=== PATIENT | female | born 1975 | race Two or more races ===

== ENCOUNTER 2019-03-20 15:45 | Inpatient (IN) | payer BC ==
[~2019-03-20] VITALS: Ht 162.6 cm; Wt 137.1 kg
[2019-03-20] MEDS: SODIUM CHLORIDE 0.9% 1,000 ML IV SCH (03:19)
[2019-03-20] MEDS ORDERED: cefTRIAXone SOD 1,000 MG VL IM ONE (16:30)
[2019-03-20] MEDS ORDERED: LIDOCAINE 2% (LOCAL ANESTH.) PF 5ml SDV ONE (16:35)
[2019-03-20 16:42] LABS: Basophils # (auto) 0.2 uL; Basophils % (auto) 1.1 % (0.0-2.0); Eosinophils # (auto) 0.1 uL; Eosinophils % (auto) 0.3 % (0.0-7.0); Hematocrit 41.9 % (36.0-46.0); Hemoglobin 13.7 g/dL (12.2-16.2); Lymphocytes # (auto) 2.7 uL; Mean Corpuscular Hemoglobin 28.4 pg (28.0-32.0); Mean Corpuscular Hgb Conc. 32.7 g/dL (32.0-36.0); Mean Corpuscular Volume 86.7 fL (80.0-100.0); Monocytes # (auto) 0.7 uL; Monocytes % (auto) 3.4 % (0.0-12.0); Neutrophils # (auto) 15.8 uL; Neutrophils % (auto) 81.2 % (37.0-80.0); Nucleated Red Blood Cells % 0.1 %; Platelet Count (auto) 235 10^3/uL (140-450); Red Blood Cells 4.84 10^6/uL (4.0-5.20); Red Cell Distribution Width 13.9 % (11.8-14.3); White Blood Cell 19.5 10^3/uL (4.4-10.8)
[2019-03-20] MEDS ORDERED: LIDOCAINE 2% (LOCAL ANESTH.) PF 5ml SDV IJ ONE (16:45)
[2019-03-20] MEDS ORDERED: SODIUM CHLORIDE 0.9% 1,000 ML IV ONE ×2 (16:49)
[2019-03-20 16:54] LABS: Albumin 3.3 g/dL (3.4-5.0); Calcium 8.4 mg/dL (8.5-10.1); Potassium 4.2 mmol/L (3.5-5.1)
[2019-03-20 17:13] LABS: BUN/Creatinine Ratio 16.3; Bilirubin, Total 0.4 mg/dL (0.2-1.0)
[2019-03-20 17:32] LABS: Urine Bacteria NONE SEEN /hpf (None Seen); Urine Blood Negative /uL (Negative); Urine Specific Gravity 1.034 (1.001-1.035); Urine WBC 2 /hpf (0 - 5)
[2019-03-20 17:43] LABS: Lactic Acid w/Reflex 2.7 mmol/L (0.4-2.0)
[2019-03-20] MEDS ORDERED: MORPHINE SULF INJ 2 MG/ML SYRINGE 1ML IV PRN (19:45)
[2019-03-20] MEDS ORDERED: VANCOMYCIN PER PHARMACY 0 MG IV SCH (19:45)
[2019-03-20] MEDS ORDERED: DEXTROSE (50%) 50ML SYRG IV PRN (19:45)
[2019-03-20] MEDS ORDERED: NITROGLYCERIN 0.4 MG SL TAB SL PRN (19:45)
[2019-03-20] MEDS ORDERED: LEVOFLOXACIN 750MG 150 ML IV SCH (20:00)
--- NOTE | 2019-03-20 20:05 | NUR ---
RT NOTE: PT ASSESSED FOR PRN MED NEB TX, PT STATED SHE TAKES TX AT HOME FOR ASTHMA NEEDED WHEN SICK. PT DENIES SOB AT THIS TIME. PT ON ROOM AIR SPO2 99%, HR 91, RR 18. BS CLEAR. PT NOTIFIED OF MED NEB TX AND TO HAVE RT PAGED IF SOB OCCURS.
[2019-03-20] MEDS ORDERED: IPRATROPIUM BROM 0.5 MG/2.5ML INH SOL ONE (20:11)
[2019-03-20] MEDS ORDERED: ALBUTEROL SULF 2.5 MG/0.5ML(0.5%) NEB SOLN ONE (20:11)
[2019-03-20 20:39] VITALS: BP 172/97
[2019-03-20] MEDS: MORPHINE SULF INJ 2 MG/ML SYRINGE 1ML IV PRN (20:57)
[2019-03-20] MEDS: ONDANSETRON HCL 4 MG/2 ML VIAL IV PRN (20:57)
[2019-03-20] MEDS ORDERED: VANCOMYCIN 1,500 MG in D5W 5% 250 ML IV SCH (21:00)
--- NOTE | 2019-03-20 21:35 | NUR ---
Telemetry admit from ER KARIN VELA admitted to Telemetry unit after SBAR received. Patient oriented to Kiley Islas, primary RN, unit, room, bed, and unit policies regarding patient care and visiting hours. Patient now on continuous telemetry monitoring, tele box # [id number] and telemetry reading on arrival to unit is sinus rhythm. Patient weighed by bedscale and encouraged to call if they need something. All questions and concerns addressed, patient verbalized understanding.
[2019-03-20 21:45] VITALS: BP 158/98
[2019-03-20] MEDS ORDERED: IPRATROPIUM BROM 0.5 MG/2.5ML INH SOL NEB PRN (22:00)
[2019-03-20] MEDS ORDERED: ALBUTEROL SULF 2.5 MG/0.5ML(0.5%) NEB SOLN NEB PRN (22:00)
[2019-03-20] MEDS: DOCUSATE SOD 100 MG CAP PO SCH (22:00)
[2019-03-20 22:01] VITALS: BP 158/98
[2019-03-20] MEDS: ACCU-CHEK COMFORT CURVE STRIP VI SCH (22:15)
[2019-03-20] MEDS: InsuLIN REG 1unit/0.01ml Soln (100units/ml) SC SCH (22:16)
[2019-03-20] MEDS: HYDROcodone-ACET 5/325MG TAB PO PRN (22:28)
[2019-03-21] MEDS: VANCOMYCIN 1,500 MG in D5W 5% 250 ML IV SCH ×3 (00:18→21:52)
[2019-03-21] MEDS ORDERED: IPRATROPIUM BROM 0.5 MG/2.5ML INH SOL NEB SCH (02:00)
[2019-03-21] MEDS ORDERED: ALBUTEROL SULF 2.5 MG/0.5ML(0.5%) NEB SOLN NEB SCH (02:00)
[2019-03-21] MEDS: MORPHINE SULF INJ 2 MG/ML SYRINGE 1ML IV PRN ×2 (04:03→08:50)
[2019-03-21] MEDS: ONDANSETRON HCL 4 MG/2 ML VIAL IV PRN ×2 (04:04→13:46)
[2019-03-21] MEDS ORDERED: GLIP-115 PO (04:21)
[2019-03-21] MEDS ORDERED: SITA50TA PO (04:21)
[2019-03-21 05:06] VITALS: BP 160/85
[2019-03-21] MEDS: SODIUM CHLORIDE 0.9% 1,000 ML IV SCH ×2 (05:45→16:21)
[2019-03-21 06:05] LABS: Basophils # (auto) 0 uL; Basophils % (auto) 0.3 % (0.0-2.0); Eosinophils # (auto) 0.1 uL; Eosinophils % (auto) 0.9 % (0.0-7.0); Hematocrit 36.6 % (36.0-46.0); Hemoglobin 12.1 g/dL (12.2-16.2); Lymphocytes # (auto) 3.5 uL; Mean Corpuscular Hemoglobin 28.8 pg (28.0-32.0); Mean Corpuscular Hgb Conc. 32.9 g/dL (32.0-36.0); Mean Corpuscular Volume 87.4 fL (80.0-100.0); Monocytes # (auto) 0.8 uL; Monocytes % (auto) 5.8 % (0.0-12.0); Neutrophils # (auto) 10.1 uL; Nucleated Red Blood Cells % 0.1 %; Platelet Count (auto) 180 10^3/uL (140-450); Red Blood Cells 4.19 10^6/uL (4.0-5.20); Red Cell Distribution Width 14.4 % (11.8-14.3); White Blood Cell 14.6 10^3/uL (4.4-10.8)
[2019-03-21 06:31] LABS: Albumin 2.8 g/dL (3.4-5.0); Calcium 7.9 mg/dL (8.5-10.1); Potassium 3.5 mmol/L (3.5-5.1)
[2019-03-21 06:38] LABS: Bilirubin, Total 0.7 mg/dL (0.2-1.0); Total Protein 5.9 g/dL (6.4-8.2)
[2019-03-21] MEDS: ACCU-CHEK COMFORT CURVE STRIP VI SCH ×4 (06:46→22:02)
[2019-03-21] MEDS: InsuLIN REG 1unit/0.01ml Soln (100units/ml) SC SCH ×4 (06:46→22:02)
[2019-03-21] MEDS: HYDROcodone-ACET 5/325MG TAB PO PRN ×3 (06:46→17:57)
--- NOTE | 2019-03-21 08:02 | NUR ---
Opening Shift Note Assumed care of patient, awake and alert. No S/S of distress/SOB. Instructed on POC and to call for assist PRN, will continue to monitor for changes Q1hr and PRN.
[2019-03-21] MEDS: FAMOTIDINE 20 MG TAB PO SCH (08:51)
[2019-03-21] MEDS: DOCUSATE SOD 100 MG CAP PO SCH ×2 (08:55→21:52)
[2019-03-21 09:00] VITALS: BP 128/70
[2019-03-21] MEDS ORDERED: LEVOFLOXACIN 750MG 150 ML IV SCH (10:00)
--- NOTE | 2019-03-21 12:28 | NUR ---
ROUNDING Dr Cardenas rounding
[2019-03-21] MEDS: LEVOFLOXACIN 750MG 150 ML IV SCH (12:41)
[2019-03-21] MEDS ORDERED: TEMAZEPAM 15 MG CAP PO PRN (12:45)
[2019-03-21 13:00] VITALS: BP 148/84
--- NOTE | 2019-03-21 16:47 | NUR ---
ASSESSED PT FOR PRN MED NEB TX, PT IN NO RESPIRATORY DISTRESS. HR 89 ON RA WITH SPO2 98% WITH CLEAR BS. NO TX NEEDED AT THIS TIME. WILL CONTINUE TO MONITOR PT.
[2019-03-21 17:00] VITALS: BP 151/79
--- NOTE | 2019-03-21 17:37 | NUR ---
IV removal IV line to left FA swollen and painful. IV DC'd with clean sterile technique, catheter fully intact. Pressure dressing applied to site. Patient tolerated well. NOTE Two attempts to reinsert unsuccessful. Phone call placed to discharge coordinator.
--- NOTE | 2019-03-21 18:29 | NUR ---
PRN MED NEB ASSESSMENT. PT DENIES SOB. NO DISTRESS NOTED AT THIS TIME. RA POX 95% HR 80 RR 18. BS CLEAR AND DIMINISHED. TX NOT GIVEN.
--- NOTE | 2019-03-21 19:20 | NUR ---
Opening Shift Note Received report from Alison CAT. Assumed care of patient, awake and alert, family at bedside. No S/S of distress/SOB or pain. Instructed on POC and to call for assist PRN, will continue to monitor for changes Q1hr and PRN.
[2019-03-21] MEDS: ACETAMINOPHEN 500 MG TAB PO PRN (22:01)
[2019-03-22] VITALS (7 sets, daily range): BP systolic 135–153; BP diastolic 75–97
[2019-03-22] MEDS: SODIUM CHLORIDE 0.9% 1,000 ML IV SCH ×2 (03:00→11:56)
[2019-03-22] MEDS: ACCU-CHEK COMFORT CURVE STRIP VI SCH ×4 (06:58→21:08)
[2019-03-22] MEDS: InsuLIN REG 1unit/0.01ml Soln (100units/ml) SC SCH ×4 (06:59→21:08)
[2019-03-22 07:04] LABS: Basophils # (auto) 0 uL; Basophils % (auto) 0.3 % (0.0-2.0); Eosinophils # (auto) 0.1 uL; Eosinophils % (auto) 1.4 % (0.0-7.0); Hematocrit 38.6 % (36.0-46.0); Hemoglobin 12.8 g/dL (12.2-16.2); Lymphocytes # (auto) 2.5 uL; Lymphocytes % (auto) 27.5 % (10.0-50.0); Mean Corpuscular Hemoglobin 28.9 pg (28.0-32.0); Mean Corpuscular Hgb Conc. 33.1 g/dL (32.0-36.0); Mean Corpuscular Volume 87.4 fL (80.0-100.0); Monocytes # (auto) 0.4 uL; Monocytes % (auto) 4.5 % (0.0-12.0); Neutrophils % (auto) 66.3 % (37.0-80.0); Platelet Count (auto) 185 10^3/uL (140-450); Red Blood Cells 4.41 10^6/uL (4.0-5.20); Red Cell Distribution Width 14.3 % (11.8-14.3)
--- NOTE | 2019-03-22 09:24 | NUR ---
Pictures Taken/Wound Consult Pictures were taken of the sore on right nare and wound consult was placed. The sore was initially more of a pimple with redness that spread to her right cheek. The pimple popped last night and a wound culture was taken. It is still draining. The redness has spread to her left cheek.
[2019-03-22] MEDS: VANCOMYCIN 1,500 MG in D5W 5% 250 ML IV SCH ×2 (09:44→17:30)
[2019-03-22] MEDS: DOCUSATE SOD 100 MG CAP PO SCH ×2 (09:45→21:06)
[2019-03-22] MEDS: FAMOTIDINE 20 MG TAB PO SCH (09:45)
--- NOTE | 2019-03-22 10:55 | NUR ---
WOUND CARE NOTE: IN TO SEE PATIENT AT THIS TIME PER WOUND CARE CONSULT REQUEST. PATIENT WAS NOTED UPON ADMIT TO HAVE WOUND TO RIGHT NARES. WOUND PHOTOGRAPHED AT THAT TIME BY BEDSIDE NURSE FOR REFERENCE. PATIENT ADMITTED TO [facility] WITH DIAGNOSIS OF HEAD PAIN. PATIENT HAS CURRENT SURESH SCORE OF 21. PATIENT HAS ONE WEEK HISTORY WITH WOUND TO THE RIGHT NOSE. WOUND IS WORSENING, SHE PRESENTED TO THE ER FOR TREATMENT. PATIENT'S WOUND TO RIGHT NARES HAS BEEN CULTURED, AND IS IN PROCESS WITH LAB. WOUND APPEARS LOCALIZED SKIN INFECTION. NOSE AND BILATERAL CHEEKS ARE ERYTHEMIC, EDEMATOUS. THERE IS A CRUSTED BROWN WOUND TO THE RIGHT NARE. WOUND IS NOT OPEN OR DRAINING. WOUND IS VERY TENDER TO THE TOUCH UPON PALPATION. LEFT WOUND OPEN TO AIR. RECOMMEND: PRN DRESSING TO RIGHT NOSE WOUND IF OPEN/DRAINING, SKIN/WOUND CARE PLAN, DIETARY CONSULT. WILL DEFER ALL OTHER RECOMMENDATIONS TO HOSPITALIST AT THIS TIME. NO FURTHER WOUND CARE NEEDED. Addendum: 03/22/19 at 1532 by Priscila Kimble RN Amended: Links added.
[2019-03-22] MEDS: LEVOFLOXACIN 750MG 150 ML IV SCH (11:56)
[2019-03-22] MEDS: ACETAMINOPHEN 500 MG TAB PO PRN (14:12)
--- NOTE | 2019-03-22 19:34 | NUR ---
Respiratory note: AT BEDSIDE TO ASSESS FOR PRN TX, NO S/S OF DISTRESS NOTED, BS ARE CLEAR T/O, NO TX INDICATED AT THIS TIME. WILL CONTINUE TO MONITOR NEEDED. PT AWARE TO HAVE ME PAGED AT ANY TIME SHE HAS ANY CONCERN WITH HER BREATHING.
--- NOTE | 2019-03-22 20:10 | NUR ---
Opening Shift Note Assumed care of patient, awake and alert. No S/S of distress/SOB or pain. Instructed on POC and to call for assistance PRN, will continue to monitor for changes Q1hr and PRN.
[2019-03-22] MEDS: HYDROcodone-ACET 5/325MG TAB PO PRN (21:05)
--- NOTE | 2019-03-22 23:00 | NUR ---
IV removal IV DC'd with clean sterile technique due to complaint of site pain, catheter fully intact. Pressure dressing applied to site. Patient tolerated well. Pt has new left hand 22 IV inserted after two attempts, patient tolerated well NOTE:
[2019-03-23] MEDS: SODIUM CHLORIDE 0.9% 1,000 ML IV SCH ×2 (02:16→08:55)
[2019-03-23] MEDS: VANCOMYCIN 1,500 MG in D5W 5% 250 ML IV SCH ×2 (02:16→09:44)
[2019-03-23 05:00] VITALS: BP 152/77
[2019-03-23] MEDS: InsuLIN REG 1unit/0.01ml Soln (100units/ml) SC SCH ×2 (06:19→11:32)
[2019-03-23] MEDS: HYDROcodone-ACET 5/325MG TAB PO PRN (06:19)
[2019-03-23] MEDS: ACCU-CHEK COMFORT CURVE STRIP VI SCH ×2 (06:19→11:33)
[2019-03-23 08:00] VITALS: BP 156/80
[2019-03-23] MEDS: DOCUSATE SOD 100 MG CAP PO SCH (09:44)
[2019-03-23] MEDS: FAMOTIDINE 20 MG TAB PO SCH (09:45)
--- NOTE | 2019-03-23 10:12 | NUR ---
Respiratory note: ASSESSED PATIENT FOR PRN BREATHING TX. NO TX WAS GIVEN AT THIS TIME. PATIENT WAS AWAKE AND ALERT, NO RESPIRATORY DISTRESS NOTED AT THIS TIME. PATIENT STATED SHE FELT SLIGHTLY OUT OF BREATH. I SUGGESTED PATIENT RECEIVES BREATHING TX, AND PATIENT STATED IF SHE NEEDS ONE SHE KNOWS TO PAGE RT. PATIENT RR 18, HR 88, SPO2 98% ON ROOM AIR. WILL CONTINUE TO MONITOR PATIENT.
[2019-03-23 12:00] VITALS: BP 153/100
[2019-03-23] MEDS: LEVOFLOXACIN 750MG 150 ML IV SCH (12:00)
--- NOTE | 2019-03-23 13:30 | NUR ---
Discharge instructions given as ordered. Encourage to follow up with PMD as instructed. All questions and concerns addressed. Patient verbalized understanding. Medication reconciliation form completed and copy given to patient. Home medications held in Pharmacy returned to patient, and needed vaccines given. IV removed with catheter intact, pressure dressing applied. Telemetry unit returned to ICU. Patient taken to vehicle via wheelchair with all personal belongings, accompanied by staff and family member. No distress noted at time of departure.
== END 2019-03-23 13:30 | disposition home or self-care (01) | DRG 872 ==
LOC: ER 15:45 → TELE 15:46 → TELE-WESTW 21:35
PROVIDERS: ADMIT Nurse Practitioner Acute Care; ATTEND Family Medicine
DX: A41.9 Sepsis, unspecified organism (principal); Z68.43 Body mass index [BMI] 50.0-59.9, adult; L03.211 Cellulitis of face; B95.62 Methicillin resistant Staphylococcus aureus infection as the cause of diseases classified elsewhere; E11.9 Type 2 diabetes mellitus without complications; E66.01 Morbid (severe) obesity due to excess calories; J32.0 Chronic maxillary sinusitis; J01.90 Acute sinusitis, unspecified; I10 Essential (primary) hypertension; E78.00 Pure hypercholesterolemia, unspecified; J45.909 Unspecified asthma, uncomplicated; Z79.84 Long term (current) use of oral hypoglycemic drugs; Z87.01 Personal history of pneumonia (recurrent); Z88.1 Allergy status to other antibiotic agents
CPT/HCPCS: 36415; 70450; 70486; 80053; 80061; 80202; 81001; 81025; 82565; 82962; 83036; 83605; 85025; 87040; 87077; 87186; 87205; 96365; 96372; G0378; J0696; J1815; J1956; J2001; J2405; J7060

== ENCOUNTER 2021-12-14 19:51 | Emergency (ER) | payer BC ==
[~2021-12-14] VITALS: Ht 162.6 cm; Wt 124.7 kg
[~2021-12-14 19:51] MED LIST: GLIP5TAB12 PO; SITA50TA PO
[2021-12-14 20:32] LABS: Basophils # (auto) 0.2 10 ^3/uL (0-0.2); Basophils % (auto) 1.5 % (0.0-2.0); Eosinophils # (auto) 0.1 10 ^3/uL (0-0.8); Eosinophils % (auto) 1.2 % (0.0-7.0); Hematocrit 43.3 % (36.0-46.0); Lymphocytes # (auto) 3.2 10 ^3/uL (0.4-5.4); Lymphocytes % (auto) 27.1 % (10.0-50.0); Mean Corpuscular Hgb Conc. 34.6 g/dL (32.0-36.0); Mean Corpuscular Volume 89.6 fL (80.0-100.0); Monocytes # (auto) 0.5 10 ^3/uL (0-1.3); Monocytes % (auto) 4.6 % (0.0-12.0); Neutrophils # (auto) 7.8 10 ^3/uL (1.6-8.6); Neutrophils % (auto) 65.6 % (37.0-80.0); Nucleated Red Blood Cells % 0.1 %; Red Blood Cells 4.84 10^6/uL (4.0-5.20); Red Cell Distribution Width 12.8 % (11.8-14.3); White Blood Cell 11.8 10^3/uL (4.4-10.8)
[2021-12-14 20:55] LABS: Albumin 3.6 g/dL (3.4-5.0); Calcium 8.4 mg/dL (8.5-10.1); Potassium 3.9 mmol/L (3.5-5.1)
[2021-12-14 20:59] LABS: BUN/Creatinine Ratio 12.3; Bilirubin, Total 0.4 mg/dL (0.2-1.0); Total Protein 7.2 g/dL (6.4-8.2)
[2021-12-14 21:07] LABS: Urine Bacteria FEW /hpf (None Seen); Urine Blood Negative /uL (Negative); Urine WBC 1 /hpf (0 - 5)
[2021-12-14] MEDS ORDERED: KETOROLAC TROMETH 60MG/2ML VIAL IM ONE (21:15)
[2021-12-14] MEDS ORDERED: HYDR-4798 PO (22:37)
[2021-12-14 22:54] VITALS: BP 140/95
[2021-12-14] MEDS ORDERED: HYDROcodone-ACET 10/325MG TAB PO ONE (23:00)
== END 2021-12-14 23:17 | disposition home or self-care (01) ==
LOC: ER 19:56
DX: R10.9 Unspecified abdominal pain (principal); M79.10 Myalgia, unspecified site; E11.9 Type 2 diabetes mellitus without complications; Z88.1 Allergy status to other antibiotic agents
CPT/HCPCS: 36415; 74176; 80053; 81001; 81025; 85025; 96372; 99284; J1885

== ENCOUNTER 2022-12-12 17:19 | Emergency (ER) | payer BC ==
[~2022-12-12] VITALS: Ht 162.6 cm; Wt 114.5 kg
[~2022-12-12 17:19] MED LIST changes: +HYDR-4798 PO
[2022-12-12 18:56] VITALS: BP 122/80
[2022-12-12] MEDS ORDERED: LIDOCAINE HCL 5 % TOP OINT 35 GM TOP ONE (20:15)
[2022-12-12] MEDS ORDERED: HYDROcodone-ACET 5/325MG TAB PO ONE (20:15)
[2022-12-12] MEDS ORDERED: LID35TP EX (20:29)
[2022-12-12] MEDS ORDERED: HYDR-4902 PO (20:29)
== END 2022-12-12 20:45 | disposition home or self-care (01) ==
LOC: ER 17:19
DX: B00.9 Herpesviral infection, unspecified (principal); N76.0 Acute vaginitis; E11.9 Type 2 diabetes mellitus without complications; Z79.84 Long term (current) use of oral hypoglycemic drugs; Z79.899 Other long term (current) drug therapy; Z88.8 Allergy status to other drugs, medicaments and biological substances